=== PATIENT | male | born 1960 | race Caucasian/White ===

== ENCOUNTER 2022-07-29 07:37 | Day surgery (SDC) | payer OTHER ==
[~2022-07-29] VITALS: Ht 180.3 cm; Wt 80.7 kg
[2022-07-29] MEDS ORDERED: fentaNYL citrate 0.05 MG/ML VIAL ONE ×2 (08:01)
[2022-07-29] MEDS ORDERED: diphenhydrAMINE 50 MG/ML VIAL ONE (08:01)
[2022-07-29] MEDS ORDERED: LIDOCAINE 2% 100 MG/5 ML UJET TP ONE (08:02)
[2022-07-29] MEDS ORDERED: MIDAZOLAM 5 MG/5 ML VIAL ONE (08:02)
[2022-07-29] MEDS ORDERED: SIMETHICONE 40 MG/0.6 ML ONE (08:40)
[2022-07-29] MEDS ORDERED: fentaNYL citrate 0.05 MG/ML VIAL IVP ONE (08:45)
[2022-07-29] MEDS ORDERED: MIDAZOLAM 2 MG/2 ML VIAL IVP ONE (08:45)
== END 2022-07-29 09:15 | disposition home or self-care (01) ==
LOC: MMU 07:37 → MDS 07:37
PROVIDERS: ATTEND Internal Medicine Gastroenterology
DX: Z12.11 Encounter for screening for malignant neoplasm of colon (principal); D12.2 Benign neoplasm of ascending colon; K59.00 Constipation, unspecified; K62.5 Hemorrhage of anus and rectum; K57.30 Diverticulosis of large intestine without perforation or abscess without bleeding; K64.8 Other hemorrhoids; Z86.718 Personal history of other venous thrombosis and embolism; Z79.899 Other long term (current) drug therapy; Z20.822 Contact with and (suspected) exposure to COVID-19
CPT/HCPCS: 45385; 87426; J2250; J3010; J1200